=== PATIENT | female | born 1995 | race Caucasian/White ===

== ENCOUNTER 2019-04-11 02:54 | Emergency (ER) | payer BC ==
[~2019-04-11] VITALS: Ht 162.6 cm; Wt 79.5 kg
[~2019-04-11 02:54] MED LIST: MULTIPLE VITAMI1 CAP PO; PREDNISONE20 MG PO; PROAIR HFA0.09 MG/AC IH; PROVENTIL0.09 MG/A1 IH
[2019-04-11 02:57] VITALS: BP 119/67; TEMP 97.6
[2019-04-11] MEDS ORDERED: PREDNISONE20 MG PO (03:16)
[2019-04-11] MEDS ORDERED: ALBUTEROL SULFAT3 M3 (03:57)
[2019-04-11 04:30] VITALS: PULSE 95
== END 2019-04-11 04:31 | disposition home or self-care (01) ==
LOC: COL.ER 02:54
DX: J45.901 Unspecified asthma with (acute) exacerbation (principal)
CPT/HCPCS: J7512